=== PATIENT | male | born 1935 | race Caucasian/White ===

== ENCOUNTER 2016-12-17 07:32 | Day surgery (SDC) | payer MEDICARE, OTHER ==
[~2016-12-17] VITALS: Ht 160 cm; Wt 87.3 kg
[2016-12-17 09:06] VITALS: Ht 160 cm; Wt 87.3 kg
[2016-12-17] MEDS ORDERED: SENNA (09:13)
[2016-12-17] MEDS ORDERED: INDERAL (09:13)
[2016-12-17] MEDS ORDERED: RAMIPRIL (09:13)
[2016-12-17] MEDS ORDERED: CRESTOR (09:13)
[2016-12-17] MEDS ORDERED: ASPIRIN PO (09:13)
[2016-12-17 09:29] VITALS: BP 133/68; PULSE 64; RESP 20
[2016-12-17] MEDS ORDERED: PROPOFOL 20 ML ONE (09:51)
[2016-12-17 10:30] VITALS: BP 185/88; PULSE 68; RESP 20
--- NOTE | 2016-12-17 13:56 | GILP ---
DATE OF PROCEDURE: 12/17/2016 NAME OF PROCEDURE: Colonoscopy. SURGEON: Mauro Murray MD PREOPERATIVE DIAGNOSES: 1. Positive occult blood in stool. 2. Change in the bowel habits. POSTOPERATIVE DIAGNOSES: 1. Colonoscopy all the way to the cecum. 2. Internal hemorrhoids. 3. No colon neoplasm was identified. INDICATION FOR THE PROCEDURE: Mr. Lara Jack is an 81-year-old male patient who noticed a cam ge in the bowel habit, and he was found to have positive occult blood in stool. Patient was schedul ed for colonoscopy. The procedure and possible complications were well explained to the patient and the family. They un derstood and consented to the procedure. DESCRIPTION OF PROCEDURE: Under the influence of anesthesia, the colonoscope was carefully introduc ed in the rectum. Under the direct vision, it was advanced all the way to the cecum. FINDINGS: The patient had internal hemorrhoids. No colitis or neoplasm was identified. He tolerated the procedure very well and there was no complication from the procedure. At the end o f the procedure, he was awake with stable vital signs, and he was discharged home to the care of his family. IMPRESSION: 1. Colonoscopy all the way to the cecum. 2. Internal hemorrhoids. 3. No colon neoplasm was identified. PLAN: 1. Continue Linzess for constipation. 2. The patient will not need another screening colonoscopy. Dictated By: MAURO PATEL/VERO Conf#: [id number] DID#: [id number]
== END 2016-12-17 12:10 | disposition home or self-care (01) ==
LOC: GIL 07:32
PROVIDERS: ATTEND Internal Medicine Gastroenterology
DX: R19.4 Change in bowel habit (principal); K64.8 Other hemorrhoids; I10 Essential (primary) hypertension; I25.10 Atherosclerotic heart disease of native coronary artery without angina pectoris; E78.5 Hyperlipidemia, unspecified; Z95.1 Presence of aortocoronary bypass graft; Z95.0 Presence of cardiac pacemaker; Z85.46 Personal history of malignant neoplasm of prostate

== ENCOUNTER 2018-09-03 07:14 | Day surgery (SDC) | END 2018-09-03 14:05 | disposition home or self-care (01) ==